=== PATIENT | male | born 1985 | race Asian ===

== ENCOUNTER 2017-08-26 06:19 | Emergency (ER) | payer SELFPAY ==
[~2017-08-26] VITALS: Ht 162.6 cm; Wt 112.5 kg
[2017-08-26 06:26] VITALS: BP 150/94
[2017-08-26] MEDS ORDERED: IBUPROFEN 200MG TABLET ONE (06:34)
== END 2017-08-26 08:44 | disposition home or self-care (01) ==
LOC: ER 06:19
DX: M79.671 Pain in right foot (principal); R03.0 Elevated blood-pressure reading, without diagnosis of hypertension; M77.51 Other enthesopathy of right foot and ankle; F17.210 Nicotine dependence, cigarettes, uncomplicated
CPT/HCPCS: 99282

== ENCOUNTER 2020-09-01 22:21 | Emergency (ER) | payer MEDICAID ==
[~2020-09-01] VITALS: Ht 170.2 cm; Wt 136.0 kg
[2020-09-01] MEDS ORDERED: ACETAMINOPHEN 325MG TABLET PO ONE (22:45)
[2020-09-01] MEDS ORDERED: IBUPROFEN 600MG TABLET PO ONE (23:00)
[2020-09-02 01:22] VITALS: BP 142/89
== END 2020-09-02 01:22 | disposition home or self-care (01) ==
LOC: ER 22:21
DX: R07.89 Other chest pain (principal); I10 Essential (primary) hypertension
CPT/HCPCS: 71045; 93005; 99283

== ENCOUNTER 2020-10-26 11:55 | Inpatient (IN) | payer MEDICAID ==
[~2020-10-26] VITALS: Ht 172.7 cm; Wt 111.2 kg
[~2020-10-26 11:55] MED LIST: CEPH500C2 MT; NAPR500T7 MT; P20 MT; SULF1TAB48 MT
[2020-10-26] MEDS ORDERED: DEXAMETHASONE 10 MG/ML VIAL IV ONE (12:00)
[2020-10-26] MEDS ORDERED: AZITHROMYCIN 500 MG in DEXT 5% WATER 250 ML IV ONE (12:00)
[2020-10-26] MEDS ORDERED: CEFTRIAXONE 1 G PREMIX 50 ML IV ONE (12:00)
[2020-10-26] MEDS ORDERED: ACETAMINOPHEN 325MG TABLET PO ONE (12:30)
[2020-10-26] MEDS ORDERED: SODIUM CHLORIDE 0.9% 1,000 ML IV ONE (12:30)
[2020-10-26] MEDS ORDERED: ONDANSETRON HCL 4MG/2ML INJ IV ONE (12:30)
[2020-10-26 12:37] LABS: BASOPHILS % 0.5 % (0.0-2.0); HEMATOCRIT. 52.6 % (42.0-52.0); LYMPHOCYTES % 15.4 % (20.0-50.0); MEAN CORPUSCULAR HEMOGLOBIN 30.1 pg (28.0-32.0); MEAN CORPUSCULAR VOLUME 87.8 fL (80.0-94.0); MEAN PLATELET VOLUME 9.4 fl (7.4-10.4); MONOCYTES % 7.3 % (2.0-8.0); NEUTROPHILS % 76.8 % (40.0-76.0); PLATELET 188 x1000/uL (130-400); RED BLOOD CELL COUNT 5.99 mill/uL (4.7-6.1); RED CELL DISTRIBUTION WIDTH 13.9 % (11.6-14.6)
[2020-10-26 12:48] LABS: CHLORIDE 93 mEq/L (98-107)
[2020-10-26 12:51] LABS: D-DIMER 0.2 mg/L FEU (<0.50); INR 1.1; PROTHROMBIN TIME 11.3 sec (9.6-11.0)
[2020-10-26 13:01] LABS: CREATINE KINASE 649 IU/L (39-308)
[2020-10-26] MEDS ORDERED: LIDOCAINE HCL 1% 20ML VIAL (Pyxis) INJ ONE (15:02)
[2020-10-26] MEDS ORDERED: ALBUTEROL 6.7GM HFA INHALER ORI PRN (18:30)
[2020-10-26 19:34] VITALS: BP 147/70
[2020-10-26 20:00] VITALS: BP 147/70
[2020-10-26] MEDS ORDERED: ACETAMINOPHEN 325MG TABLET PO PRN (20:30)
[2020-10-26] MEDS ORDERED: ONDANSETRON HCL 4MG/2ML INJ IV PRN (20:30)
[2020-10-26] MEDS: ENOXAPARIN 30MG/0.3ML SYR SUBCUT SCH (20:47)
[2020-10-27 00:05] VITALS: BP 149/88
[2020-10-27 04:00] VITALS: BP 118/66
[2020-10-27 07:25] LABS: BASOPHILS % 0.3 % (0.0-2.0); HEMOGLOBIN. 16.8 g/dL (14.0-18.0); LYMPHOCYTES % 7.3 % (20.0-50.0); MEAN CORPUSCULAR HEMOGLOBIN 29.5 pg (28.0-32.0); MEAN CORPUSCULAR VOLUME 87.7 fL (80.0-94.0); MEAN PLATELET VOLUME 10.5 fl (7.4-10.4); MONOCYTES % 8.6 % (2.0-8.0); NEUTROPHILS % 83.8 % (40.0-76.0); PLATELET 177 x1000/uL (130-400); RED BLOOD CELL COUNT 5.69 mill/uL (4.7-6.1); RED CELL DISTRIBUTION WIDTH 13.6 % (11.6-14.6)
[2020-10-27 07:42] LABS: CHLORIDE 96 mEq/L (98-107)
[2020-10-27 07:51] LABS: LDL CHOLESTEROL 175 mg/dL (5-100)
[2020-10-27 07:54] LABS: HDL CHOLESTEROL 26 mg/dL (40-59)
[2020-10-27 08:00] VITALS: BP 148/77
[2020-10-27] MEDS: PANTOPRAZOLE SODIUM 40 MG/VIAL IV SCH (08:06)
[2020-10-27] MEDS: ENOXAPARIN 30MG/0.3ML SYR SUBCUT SCH ×2 (08:06→20:30)
[2020-10-27] MEDS ORDERED: DEXAMETHASONE 1MG TABLET PO SCH (09:00)
[2020-10-27] MEDS: SODIUM CHLORIDE 0.9% 1,000 ML IV SCH ×2 (09:37→18:24)
[2020-10-27] MEDS: DEXAMETHASONE 4MG/ML 1ML VIAL IV SCH (09:50)
[2020-10-27 11:50] VITALS: BP 124/80
[2020-10-27] MEDS: CEFTRIAXONE 1,000 MG in DEXTROSE 5% WATER 50 ML IV SCH (13:09)
[2020-10-27] MEDS: AZITHROMYCIN 500 MG in DEXT 5% WATER 250 ML IV SCH (15:05)
[2020-10-27 15:11] LABS: CLARITY URINE CLEAR (CLEAR); COLOR URINE YELLOW (YELLOW); KETONES URINE NEGATIVE (NEGATIVE); LEUKOCYTE ESTERASE URINE NEGATIVE (NEGATIVE); NITRITE URINE NEGATIVE (NEGATIVE); OCCULT BLOOD URINE TRACE (NEGATIVE); PH URINE 5.5 (4.5-8.0); PROTEIN URINE 2+ (NEGATIVE); SPECIFIC GRAVITY URINE 1.021 (1.005-1.030)
[2020-10-27 16:00] VITALS: BP 140/76
[2020-10-27 20:00] VITALS: BP 138/70
[2020-10-28 00:05] VITALS: BP 123/70
[2020-10-28 04:00] VITALS: BP 137/74
[2020-10-28] MEDS: SODIUM CHLORIDE 0.9% 1,000 ML IV SCH ×2 (05:25→15:03)
[2020-10-28 06:05] LABS: CHLORIDE 102 mEq/L (98-107)
[2020-10-28 06:16] LABS: HEMATOCRIT. 42.7 % (42.0-52.0); HEMOGLOBIN. 14.6 g/dL (14.0-18.0); MEAN CORPUSCULAR HEMOGLOBIN 29.8 pg (28.0-32.0); MEAN CORPUSCULAR VOLUME 87.4 fL (80.0-94.0); MEAN PLATELET VOLUME 10.3 fl (7.4-10.4); PLATELET 204 x1000/uL (130-400); RED BLOOD CELL COUNT 4.89 mill/uL (4.7-6.1); RED CELL DISTRIBUTION WIDTH 13.8 % (11.6-14.6)
[2020-10-28 08:00] VITALS: BP 119/57
[2020-10-28] MEDS: DEXAMETHASONE 4MG/ML 1ML VIAL IV SCH (08:31)
[2020-10-28] MEDS: PANTOPRAZOLE SODIUM 40 MG/VIAL IV SCH (08:31)
[2020-10-28] MEDS: ENOXAPARIN 30MG/0.3ML SYR SUBCUT SCH ×2 (08:32→20:52)
[2020-10-28] MEDS: GUAIFENESIN-DM 200MG-20MG/10ML UDC PO PRN (08:43)
[2020-10-28 12:00] VITALS: BP 137/46
[2020-10-28] MEDS: CEFTRIAXONE 1,000 MG in DEXTROSE 5% WATER 50 ML IV SCH (15:03)
[2020-10-28] MEDS: BENZONATATE 100MG CAPSULE PO SCH ×2 (15:03→20:52)
[2020-10-28 16:00] VITALS: BP 131/59
[2020-10-28] MEDS: AZITHROMYCIN 500 MG in DEXT 5% WATER 250 ML IV SCH (17:23)
[2020-10-28 20:00] VITALS: BP 127/68
[2020-10-29] VITALS: BP 127/55
[2020-10-29] MEDS: SODIUM CHLORIDE 0.9% 1,000 ML IV SCH (00:52)
[2020-10-29 04:00] VITALS: BP 111/46
[2020-10-29] MEDS: BENZONATATE 100MG CAPSULE PO SCH ×3 (06:51→21:01)
[2020-10-29 08:00] VITALS: BP 119/70
[2020-10-29 08:58] LABS: CHLORIDE 105 mEq/L (98-107)
[2020-10-29] MEDS: PANTOPRAZOLE SODIUM 40 MG/VIAL IV SCH (09:03)
[2020-10-29] MEDS: DEXAMETHASONE 4MG/ML 1ML VIAL IV SCH (09:03)
[2020-10-29] MEDS: ENOXAPARIN 30MG/0.3ML SYR SUBCUT SCH ×2 (09:03→21:02)
[2020-10-29 12:00] VITALS: BP 113/64
[2020-10-29] MEDS: CEFTRIAXONE 1,000 MG in DEXTROSE 5% WATER 50 ML IV SCH (13:35)
[2020-10-29 13:55] LABS: PLATELET ESTIMATE NORMAL
[2020-10-29 16:00] VITALS: BP 115/43
[2020-10-29] MEDS: AZITHROMYCIN 500 MG in DEXT 5% WATER 250 ML IV SCH (17:25)
[2020-10-29 20:26] VITALS: BP 126/70
[2020-10-29] MEDS: GUAIFENESIN-DM 200MG-20MG/10ML UDC PO PRN (23:18)
[2020-10-30] VITALS: BP 116/77
[2020-10-30 04:00] VITALS: BP 120/70
[2020-10-30] MEDS: BENZONATATE 100MG CAPSULE PO SCH ×3 (05:17→21:24)
[2020-10-30 06:21] LABS: CHLORIDE 104 mEq/L (98-107)
[2020-10-30 08:00] VITALS: BP 116/59
[2020-10-30] MEDS: FAMOTIDINE 20MG TABLET PO SCH ×2 (08:47→21:24)
[2020-10-30] MEDS: DEXAMETHASONE 4MG/ML 1ML VIAL IV SCH (08:47)
[2020-10-30] MEDS: ENOXAPARIN 30MG/0.3ML SYR SUBCUT SCH ×2 (08:50→21:24)
[2020-10-30 12:00] VITALS: BP 116/59
[2020-10-30] MEDS: CEFTRIAXONE 1,000 MG in DEXTROSE 5% WATER 50 ML IV SCH (14:02)
[2020-10-30 16:00] VITALS: BP 116/59
[2020-10-30] MEDS: AZITHROMYCIN 500 MG in DEXT 5% WATER 250 ML IV SCH (18:09)
[2020-10-30 20:00] VITALS: BP 130/76
[2020-10-31] VITALS: BP 159/96
[2020-10-31 04:00] VITALS: BP 125/74
[2020-10-31] MEDS: BENZONATATE 100MG CAPSULE PO SCH ×3 (05:30→21:25)
[2020-10-31 08:00] VITALS: BP 120/82
[2020-10-31] MEDS: ENOXAPARIN 30MG/0.3ML SYR SUBCUT SCH ×2 (08:16→21:26)
[2020-10-31] MEDS: FAMOTIDINE 20MG TABLET PO SCH ×2 (08:16→21:25)
[2020-10-31] MEDS: DEXAMETHASONE 4MG/ML 1ML VIAL IV SCH (08:16)
[2020-10-31 12:00] VITALS: BP 116/55
[2020-10-31] MEDS: CEFTRIAXONE 1,000 MG in DEXTROSE 5% WATER 50 ML IV SCH (13:11)
[2020-10-31 16:00] VITALS: BP 120/68
[2020-10-31 20:00] VITALS: BP 132/79
[2020-11-01] VITALS: BP 130/61
[2020-11-01 04:00] VITALS: BP 144/72
[2020-11-01] MEDS: BENZONATATE 100MG CAPSULE PO SCH ×3 (05:11→21:16)
[2020-11-01 08:00] VITALS: BP 130/72
[2020-11-01] MEDS: FAMOTIDINE 20MG TABLET PO SCH ×2 (10:10→21:16)
[2020-11-01] MEDS: DEXAMETHASONE 4MG/ML 1ML VIAL IV SCH (10:10)
[2020-11-01] MEDS: ENOXAPARIN 30MG/0.3ML SYR SUBCUT SCH ×2 (10:10→21:44)
[2020-11-01 12:00] VITALS: BP 141/88
[2020-11-01] MEDS: CEFTRIAXONE 1,000 MG in DEXTROSE 5% WATER 50 ML IV SCH (13:58)
[2020-11-01 14:53] LABS: BG BASE EXCESS -0.5 mmol/L (-2.0-2.0); BG CARBOXYHEMOGLOBIN 0.6 % (0.5-1.5); BG DEOXYHEMOGLOBIN 10.8 % (0.0-5.0); BG FRACTION INSPIRED OXYGEN 21; BG HCO3 ACT 23.5 mmol/L (22.0-26.0); BG METHEMOGLOBIN 0.2 % (0.0-1.5); BG OXYGEN SATURATION 89.1 % (92.0-98.5); BG OXYHEMOGLOBIN 88.4 % (94.0-97.0); BG PCO2 36.7 mmHg (35.0-45.0); BG PH 7.424 (7.350-7.450); BG SAMPLE SITE LEFT RADIAL; BG VENT MODE ROOM AIR
[2020-11-01 15:53] VITALS: BP 124/76
[2020-11-01 20:00] VITALS: BP 111/66
[2020-11-02] VITALS: BP 110/73
[2020-11-02 04:00] VITALS: BP 114/73
[2020-11-02] MEDS: BENZONATATE 100MG CAPSULE PO SCH ×2 (06:02→12:52)
[2020-11-02 08:00] VITALS: BP 102/60
[2020-11-02] MEDS: FAMOTIDINE 20MG TABLET PO SCH (08:24)
[2020-11-02] MEDS: DEXAMETHASONE 4MG/ML 1ML VIAL IV SCH (08:24)
[2020-11-02] MEDS: ENOXAPARIN 30MG/0.3ML SYR SUBCUT SCH (08:24)
[2020-11-02 16:00] VITALS: BP 108/61
[2020-11-02 18:25] VITALS: BP 109/61
== END 2020-11-02 18:50 | disposition home or self-care (01) | DRG 720 ==
LOC: ER 12:00 → 7WST 15:50 → EDBEDREQ 16:23 → ENRESERV 17:52 → CANRESERV 17:52 → ENRESERV 17:56
PROVIDERS: ADMIT Internal Medicine; ATTEND Internal Medicine
PROC: 05HY33Z Insertion of Infusion Device into Upper Vein, Percutaneous Approach (ICD-10-PCS; principal; 2020-10-26)
DX: A41.89 Other specified sepsis (principal); J96.01 Acute respiratory failure with hypoxia; J12.82 Pneumonia due to coronavirus disease 2019; U07.1 COVID-19; E66.9 Obesity, unspecified; E78.5 Hyperlipidemia, unspecified; E87.1 Hypo-osmolality and hyponatremia; N17.9 Acute kidney failure, unspecified; M10.9 Gout, unspecified; D72.821 Monocytosis (symptomatic); R74.01 Elevation of levels of liver transaminase levels; R74.8 Abnormal levels of other serum enzymes; E86.1 Hypovolemia; Z78.9 Other specified health status; Z79.2 Long term (current) use of antibiotics; Z79.899 Other long term (current) drug therapy; Z68.37 Body mass index [BMI] 37.0-37.9, adult
CPT/HCPCS: 36415; 36600; 71045; 76937; 80048; 80053; 80061; 81003; 82375; 82550; 82728; 82805; 83605; 83615; 83880; 84145; 84484; 85025; 85379; 85384; 86140; 87426; 93005; 99291; C1725; C9113; J0456; J0696; J1100; J1650; J2405; J3490; J7030; J7040; J7060; J8540

== ENCOUNTER 2021-05-11 05:03 | Emergency (ER) | payer MEDICAID ==
[~2021-05-11] VITALS: Ht 162.6 cm; Wt 127.0 kg
[~2021-05-11 05:03] MED LIST changes: -CEPH500C2 MT; -P20 MT; -SULF1TAB48 MT
[2021-05-11] MEDS ORDERED: KETOROLAC 30MG/ML VIAL IM ONE (06:00)
[2021-05-11] MEDS ORDERED: COLCHICINE 0.6MG TABLET PO ONE ×2 (06:15→07:15)
[2021-05-11] MEDS ORDERED: T3 PO (07:06)
[2021-05-11] MEDS ORDERED: COLC0.6C3 PO (07:06)
[2021-05-11 07:23] VITALS: BP 142/82
== END 2021-05-11 07:24 | disposition home or self-care (01) ==
LOC: ER 05:03
DX: M10.9 Gout, unspecified (principal)
CPT/HCPCS: 73610; 96372; 99283; J1885

== ENCOUNTER 2021-07-11 09:41 | Emergency (ER) | payer MEDICAID ==
[~2021-07-11] VITALS: Ht 165.1 cm; Wt 123.0 kg
[~2021-07-11 09:41] MED LIST changes: +COLC0.6C3 PO; +T3 PO
[2021-07-11] MEDS ORDERED: METHYLPREDNISOLONE SOD SUCC 125 MG/2 ML VIAL IM STA (13:12)
[2021-07-11] MEDS ORDERED: KETOROLAC 60MG/2ML VIAL IM STA (13:12)
[2021-07-11 13:21] VITALS: BP 152/88
[2021-07-11] MEDS ORDERED: NAPR-681 PO (14:34)
== END 2021-07-11 15:18 | disposition home or self-care (01) ==
LOC: ER 11:41
DX: M25.572 Pain in left ankle and joints of left foot (principal)
CPT/HCPCS: 73610; 96372; 99284; J1885; J2930

== ENCOUNTER 2022-01-19 05:10 | Emergency (ER) | payer MEDICAID ==
[~2022-01-19] VITALS: Ht 160 cm; Wt 125.0 kg
[~2022-01-19 05:10] MED LIST changes: +NAPR-681 PO
[2022-01-19] MEDS ORDERED: PREDNISONE 20MG TABLET PO ONE (05:30)
[2022-01-19] MEDS ORDERED: P20 MT (05:55)
[2022-01-19] MEDS ORDERED: IBUP-2029 MT (05:55)
[2022-01-19] MEDS ORDERED: COLC0.6C3 MT (05:55)
[2022-01-19] MEDS ORDERED: COLCHICINE 0.6MG TABLET PO ONE (06:00)
[2022-01-19 06:12] VITALS: BP 114/78
[2022-01-19] MEDS ORDERED: COLCHICINE 0.6MG TABLET PO NR (06:15)
== END 2022-01-19 06:15 | disposition home or self-care (01) ==
LOC: ER 05:10
DX: M10.072 Idiopathic gout, left ankle and foot (principal); I10 Essential (primary) hypertension; Z13.9 Encounter for screening, unspecified; Z98.890 Other specified postprocedural states
CPT/HCPCS: 99283; J7512

== ENCOUNTER 2022-09-08 22:57 | Emergency (ER) | payer MEDICAID ==
[~2022-09-08] VITALS: Ht 162.6 cm; Wt 127.6 kg
[~2022-09-08 22:57] MED LIST changes: +COLC0.6C3 MT; +IBUP-2029 MT; +P20 MT
[2022-09-08 23:00] VITALS: O2SAT 99
[2022-09-09] MEDS ORDERED: KETOROLAC 60MG/2ML VIAL IM STA (01:52)
[2022-09-09] MEDS ORDERED: KETOROLAC 30MG/ML VIAL IM NR (03:30)
[2022-09-09] MEDS ORDERED: KETOROLAC 60MG/2ML VIAL IM NR (03:30)
[2022-09-09 03:53] LABS: BASOPHILS % 0.1 % (0.0-2.0); EOSINOPHILS % 0.5 % (0.0-5.0); HEMATOCRIT. 46.5 % (42.0-52.0); HEMOGLOBIN. 15.6 g/dL (14.0-18.0); LYMPHOCYTES % 19.2 % (20.0-50.0); MEAN CORPUSCULAR HEMOGLOBIN 30.1 pg (28.0-32.0); MEAN CORPUSCULAR VOLUME 89.8 fL (80.0-94.0); MEAN PLATELET VOLUME 9.5 fl (7.4-10.4); MONOCYTES % 9.6 % (2.0-8.0); NEUTROPHILS % 70.6 % (40.0-76.0); PLATELET 292 x1000/uL (130-400); RED BLOOD CELL COUNT 5.18 mill/uL (4.7-6.1); RED CELL DISTRIBUTION WIDTH 13.3 % (11.6-14.6)
[2022-09-09 04:05] LABS: CHLORIDE 99 mEq/L (98-107)
[2022-09-09] MEDS ORDERED: COLC0.6C3 MT (04:52)
[2022-09-09] MEDS ORDERED: HYDR-4001 MT (04:52)
[2022-09-09] MEDS ORDERED: ALLO100T MT (04:52)
[2022-09-09 05:52] VITALS: BP 142/82; PULSE 115; RESP 18; TEMP 98.6
== END 2022-09-09 05:53 | disposition home or self-care (01) ==
LOC: ER 22:57
DX: M10.9 Gout, unspecified (principal); M79.671 Pain in right foot; M25.512 Pain in left shoulder
CPT/HCPCS: 99284; 71045; 80048; 84550; 85025; 36415; 73030; 73630; 96372; J1885